=== PATIENT | female | born 1995 | race Caucasian/White ===

== ENCOUNTER 2019-11-08 18:01 | Emergency (ER) | payer MEDICAID ==
[~2019-11-08] VITALS: Ht 180.3 cm; Wt 135.5 kg
[2019-11-08 18:10] VITALS: BP 136/92
[2019-11-08] MEDS ORDERED: ibuprofen tablet 400 MG TABLET PO ONE (21:20)
[2019-11-08] MEDS ORDERED: IBUP-1984 PO (21:20)
== END 2019-11-08 22:00 | disposition home or self-care (01) ==
LOC: ER 18:03
DX: S70.12XA Contusion of left thigh, initial encounter (principal); F41.9 Anxiety disorder, unspecified; Z79.899 Other long term (current) drug therapy; V00-Y99 External causes of morbidity; Y93.I9 Activity, other involving external motion; Y92.89 Other specified places as the place of occurrence of the external cause; Y99.8 Other external cause status
CPT/HCPCS: 99282

== ENCOUNTER 2020-09-18 17:47 | Emergency (ER) | payer MEDICAID ==
[~2020-09-18] VITALS: Ht 180.3 cm; Wt 128.8 kg
[2020-09-18 18:36] VITALS: BP 150/92
--- NOTE | 2020-09-18 19:37 | NUR ---
ANA STANLEY TALKING WITH PT ABOUT DC INSTRUCTIONS
== END 2020-09-18 19:51 | disposition home or self-care (01) ==
LOC: ER 17:47
DX: O9A.22 Injury, poisoning and certain other consequences of external causes complicating childbirth (principal); S05.12XA Contusion of eyeball and orbital tissues, left eye, initial encounter; R51.9 Headache, unspecified; R68.84 Jaw pain; Z3A.12 12 weeks gestation of pregnancy; Z37.9 Outcome of delivery, unspecified; Y04.8XXA Assault by other bodily force, initial encounter; Y92.89 Other specified places as the place of occurrence of the external cause; Y99.8 Other external cause status
CPT/HCPCS: 70450; 70486; 99285

== ENCOUNTER → 2022-09-11 | Emergency (ER) | payer MEDICAID ==
[~2022-09-11] VITALS: Ht 180.3 cm; Wt 109.1 kg
[~2022-09-11] MED LIST: LIDOCAINE 2% w/EPI 1:100:000 30mL injection MDV**cath lab 1 only SQ ONE; LIDOcaine/epinephrine/tetracaine TOPICAL sol 3 ML syringe TOP ONE; SULF1TAB49 PO
[2022-09-11 11:10] VITALS: BP 121/71
== END | disposition home or self-care (01) ==
LOC: ER 10:52
DX: L02.31 Cutaneous abscess of buttock (principal); F41.9 Anxiety disorder, unspecified; Z79.2 Long term (current) use of antibiotics
CPT/HCPCS: 10060; 87070; 87077; 87186; 99283; J3490; A6258; A6449

== ENCOUNTER 2023-06-16 04:12 | Emergency (ER) | payer MEDICAID ==
[~2023-06-16] VITALS: Ht 180.3 cm; Wt 108.0 kg
[2023-06-16 04:16] VITALS: BP 168/109; PULSE 113; RESP 18; TEMP 99; O2SAT 99
[2023-06-16] MEDS ORDERED: bacitracin 15gm ointment TP ONE (06:00)
--- NOTE | 2023-06-16 06:22 | NUR ---
toe irr with 150 ml nacl and bet gabriel. dressing applied with topical abx
== END 2023-06-16 06:24 | disposition home or self-care (01) ==
LOC: ER 04:12
DX: S91.212A Laceration without foreign body of left great toe with damage to nail, initial encounter (principal); F41.9 Anxiety disorder, unspecified; W26.9XXA Contact with unspecified sharp object(s), initial encounter; Y93.01 Activity, walking, marching and hiking; Y92.89 Other specified places as the place of occurrence of the external cause; Y99.8 Other external cause status
CPT/HCPCS: 11730; 99284; A6222; A6449

== ENCOUNTER 2023-12-07 12:07 | Outpatient (CLI) | payer MEDICAID ==
[2023-12-07 13:05] LABS: BASOPHILS % (AUTO) 0.4 % (0-1); EOSINOPHILS # (AUTO) 0.2 X10'3 (0-0.9); EOSINOPHILS % (AUTO) 2.2 % (0-6); HEMATOCRIT 35.4 % (35.0-45.0); HEMOGLOBIN 11.9 g/dl (12.0-16.0); LYMPHOCYTES # (AUTO) 1.7 X10'3 (1.1-4.8); MEAN CORPUSCULAR HEMOGLOBIN 25.4 PG (27.0-31.0); MEAN CORPUSCULAR HGB CONC 33.8 g/dL (33.0-36.5); MEAN CORPUSCULAR VOLUME 75.1 FL (78-98); MEAN PLATELET VOLUME 9.7 FL (7.4-10.4); MONOCYTES # (AUTO) 0.4 X10'3 (0-0.9); MONOCYTES % (AUTO) 4.5 % (2-12); NEUTROPHILS # (AUTO) 6.8 X10'3 (1.8-7.7); NEUTROPHILS % (AUTO) 73.9 % (42-75); PLATELET COUNT 147 X10'3 (140-440); RED BLOOD COUNT 4.71 X10'6 (4.20-5.60); RED CELL DISTRIBUTION WIDTH 20.2 % (11.5-14.5); WHITE BLOOD COUNT 9.2 X10'3 (4.5-11.0)
[2023-12-07 14:27] LABS: ANISOCYTOSIS 3+; ELLIPTOCYTES FEW; MICROCYTOSIS 1+; PLATELET ESTIMATE NORMAL; SCHISTOCYTES FEW
== END 2023-12-07 23:59 | disposition home or self-care (01) ==
LOC: LAB 12:07
PROVIDERS: ATTEND Nurse Practitioner
DX: D69.6 Thrombocytopenia, unspecified (principal)
CPT/HCPCS: 36415; 85008; 85025